=== PATIENT | female | born 1970 ===

== ENCOUNTER → 2019-12-12 | Day surgery (SDC) | payer OTHER ==
[~2019-12-12] MED LIST: FEMARA2.5 MG PO; IBU400 MG PO; PROLIA60 MG/1 ML
== END | disposition home or self-care (01) ==
LOC: ADM 12-08 08:00 → CIR.AMB 07:48 → ADM 08:00 → CIR.AMB 08:45
DX: D26.1 Other benign neoplasm of corpus uteri (principal)